=== PATIENT | female | born 1950 | race American Indian/Alaskan Native ===

== ENCOUNTER 2017-04-15 21:18 | Emergency (ER) | payer OTHER ==
[2017-04-15 23:36] VITALS: BP 148/105
[2017-04-16 00:20] LABS: Basophils % (Auto) 1.3 % (0.0-1.8); Eosinophils % (Auto) 2.3 % (0.0-4.3); Hematocrit 34.8 % (30.3-42.9); Mean Corpuscular HGB Conc 32 % (30-34); Mean Corpuscular Volume 82 fl (79-97); Platelet Count 263 K/mm3 (140-440); Red Blood Count 4.27 M/mm3 (3.65-5.03); Red Cell Distribution Width 15.3 % (13.2-15.2)
[2017-04-16 00:21] LABS: Mean Corpuscular Hemoglobin 26 pg (28-32)
[2017-04-16 00:27] LABS: Anion Gap 20 mmol/L; BUN/Creatinine Ratio 21.25; Blood Urea Nitrogen 17 mg/dL (7-17); Calcium 9.7 mg/dL (8.4-10.2); Carbon Dioxide 25 mmol/L (22-30); Chloride 98.5 mmol/L (98-107); Glucose 255 mg/dL (65-100); Potassium 4.1 mmol/L (3.6-5.0); Sodium 139 mmol/L (137-145)
--- NOTE | 2017-04-16 08:51 | XRay Report ---
ROUTINE CHEST, TWO VIEWS: HISTORY: Shortness of breath. The trachea, heart, mediastinal contour, lung boyd and bony thorax are unremarkable. IMPRESSION: Unremarkable chest x-ray. No significant change since 12/24/15.
== END 2017-04-16 03:14 | disposition left against medical advice (07) ==
LOC: ED 21:18
DX: E11.65 Type 2 diabetes mellitus with hyperglycemia (principal); K21.9 Gastro-esophageal reflux disease without esophagitis; I10 Essential (primary) hypertension; Z53.21 Procedure and treatment not carried out due to patient leaving prior to being seen by health care provider
CPT/HCPCS: 36415; 71020; 80048; 82805; 82962; 84484; 85025; 93005; 93010